=== PATIENT | female | born 1970 | race Two or more races ===

== ENCOUNTER 2020-07-29 10:53 | Emergency (ER) | payer OTHER ==
[~2020-07-29] VITALS: Ht 160 cm; Wt 72.1 kg
[2020-07-29] MEDS ORDERED: NORVASC5 MG (11:10)
[2020-07-29] MEDS ORDERED: QUESTRAN PACKET4 GM (11:11)
[2020-07-29] MEDS ORDERED: SINGULAIR5 MG (11:12)
[2020-07-29] MEDS ORDERED: ZOCOR20 MG (11:12)
[2020-07-29] MEDS ORDERED: PANTOPRAZOLE SO20 MG (11:12)
[2020-07-29] MEDS ORDERED: WIXELA 250-501 EACH (11:13)
[2020-07-29] MEDS ORDERED: PROAIR HFA8.5 GM (11:13)
[2020-07-29] MEDS ORDERED: KETO10TA2 PO (14:36)
[2020-07-29] MEDS ORDERED: SKELAXIN800 MG PO (14:36)
== END 2020-07-29 17:30 | disposition home or self-care (01) ==
LOC: ER 10:53 → EMR PED 10:53 → ER 11:33
DX: R07.89 Other chest pain (principal); R00.2 Palpitations

== ENCOUNTER 2021-04-02 08:59 | Emergency (ER) | payer OTHER ==
[~2021-04-02] VITALS: Ht 162.6 cm; Wt 72.1 kg
[~2021-04-02 08:59] MED LIST: KETO10TA2 PO; NORVASC5 MG; PANTOPRAZOLE SO20 MG; PROAIR HFA8.5 GM; QUESTRAN PACKET4 GM; SINGULAIR5 MG; SKELAXIN800 MG PO; WIXELA 250-501 EACH; ZOCOR20 MG
[2021-04-02] MEDS ORDERED: SINGULAIR 10MG10 MG PO (09:29)
[2021-04-02] MEDS ORDERED: ZITHROMAX500 MG PO (12:40)
[2021-04-02] MEDS ORDERED: TUSSIN DM SYRU118 ML PO (12:40)
== END 2021-04-02 12:50 | disposition home or self-care (01) ==
LOC: ER 08:59
DX: B34.9 Viral infection, unspecified (principal); B96.0 Mycoplasma pneumoniae [M. pneumoniae] as the cause of diseases classified elsewhere; Z03.818 Encounter for observation for suspected exposure to other biological agents ruled out; R53.81 Other malaise; R05 Cough

== ENCOUNTER 2021-05-17 15:59 | Emergency (ER) | payer OTHER ==
[~2021-05-17] VITALS: Ht 162.6 cm; Wt 75.3 kg
[~2021-05-17 15:59] MED LIST changes: +SINGULAIR 10MG10 MG PO; +TUSSIN DM SYRU118 ML PO; +ZITHROMAX500 MG PO
[2021-05-17] MEDS ORDERED: NEURONTIN300 MG PO (16:06)
== END 2021-05-17 18:15 | disposition home or self-care (01) ==
LOC: ER 15:59
DX: M25.59 Pain in other specified joint (principal); M79.7 Fibromyalgia; Z03.818 Encounter for observation for suspected exposure to other biological agents ruled out

== ENCOUNTER 2021-06-08 14:51 | Emergency (ER) | payer OTHER ==
[~2021-06-08] VITALS: Ht 162.6 cm; Wt 73.9 kg
[~2021-06-08 14:51] MED LIST changes: +NEURONTIN300 MG PO
== END 2021-06-08 16:55 | disposition home or self-care (01) ==
LOC: ER 14:51
DX: T23.221A Burn of second degree of single right finger (nail) except thumb, initial encounter (principal); X10.2XXA Contact with fats and cooking oils, initial encounter; Y93.G3 Activity, cooking and baking; Y92.010 Kitchen of single-family (private) house as the place of occurrence of the external cause; Y99.8 Other external cause status

== ENCOUNTER 2021-10-23 15:32 | Emergency (ER) | payer OTHER ==
[~2021-10-23] VITALS: Ht 162.6 cm; Wt 72.6 kg
[2021-10-23] MEDS ORDERED: CLARITIN10 M1 (15:42)
== END 2021-10-23 20:33 | disposition home or self-care (01) ==
LOC: ER 15:32
DX: J45.901 Unspecified asthma with (acute) exacerbation (principal); Z20.822 Contact with and (suspected) exposure to COVID-19

== ENCOUNTER 2021-12-28 20:07 | Emergency (ER) | payer OTHER ==
[~2021-12-28] VITALS: Ht 162.6 cm; Wt 71.7 kg
[~2021-12-28 20:07] MED LIST changes: +CLARITIN10 M1
[2021-12-28] MEDS ORDERED: PROAIR HFA8.5 GM (20:13)
[2021-12-28] MEDS ORDERED: PEPCID AC10 MG (20:13)
== END 2021-12-28 22:57 | disposition home or self-care (01) ==
LOC: ER 20:07
DX: U07.1 COVID-19 (principal); A49.3 Mycoplasma infection, unspecified site; I10 Essential (primary) hypertension; Z88.8 Allergy status to other drugs, medicaments and biological substances

== ENCOUNTER → 2022-09-21 | Emergency (ER) | payer OTHER ==
[~2022-09-21] VITALS: Ht 162.6 cm; Wt 74.4 kg
[~2022-09-21] MED LIST changes: +BUDESONIDE0.5 MG/2 M IH; +PEPCID AC10 MG; +QUESTRAN POWDE378 GM PO
== END | disposition home or self-care (01) ==
LOC: ER 09:13
DX: J45.901 Unspecified asthma with (acute) exacerbation (principal); Z88.6 Allergy status to analgesic agent; Z20.822 Contact with and (suspected) exposure to COVID-19

== ENCOUNTER → 2023-05-13 | Emergency (ER) | payer OTHER | END | disposition left against medical advice (07) | LOC: ER 18:46 | DX: Z53.21 Procedure and treatment not carried out due to patient leaving prior to being seen by health care provider (principal) ==

== ENCOUNTER 2023-06-22 08:24 | Emergency (ER) | payer OTHER ==
[~2023-06-22] VITALS: Ht 162.6 cm; Wt 73.9 kg
== END 2023-06-22 09:22 | disposition home or self-care (01) ==
LOC: ER 08:24
DX: R05.9 Cough, unspecified (principal)

== ENCOUNTER 2023-09-17 16:19 | Emergency (ER) | payer OTHER ==
[~2023-09-17] VITALS: Ht 162.6 cm; Wt 75.3 kg
[2023-09-17] MEDS ORDERED: KETOROLAC TROMETHAMINE 60 MG VIAL IM STA (18:01)
[2023-09-17] MEDS ORDERED: CEFTRIAXONE SODIUM 1,000 MG VIAL IM STA (18:01)
== END 2023-09-17 18:24 | disposition home or self-care (01) ==
LOC: ER 16:20
DX: J06.9 Acute upper respiratory infection, unspecified (principal)